=== PATIENT | female | born 1950 ===

== ENCOUNTER 2016-10-22 10:06 | Emergency (ER) | payer OTHER ==
[2016-10-22 10:13] VITALS: RESP 17
[2016-10-22 11:05] VITALS: O2SAT 98
[2016-10-22] MEDS ORDERED: Albuterol-Ipratrop 3 mg / 0.5 (3 ml) UD IH STA (11:08)
[2016-10-22] MEDS ORDERED: guaiFENesin 100 mg/5 ml Syrup UD PO STA (11:08)
[2016-10-22] MEDS ORDERED: guaiFENesin 100 mg/5 ml Syrup UD ONE (11:19)
--- NOTE | 2016-10-22 11:19 | C.PDOC ---
History Of Present Illness 66 y/o female pmhx COPD, lung cancer diagnosed in 2010 (small nodules, seen and evaluated by teenage program director in [place], told was stable and advised against chemotherapy or radiation) presents to ED with complaints of productive cough x1 week. Pt states occasionally the phlegm causes her to vomit. She denies SOB, dyspnea, chest pain, fever, chills, leg pain or edema, abdominal pain or any other complaints. (Valeriano HUTCHISON,Dejah Jose) History Per: Patient History/Exam Limitations: no limitations Onset/Duration Of Symptoms: Days Current Symptoms Are (Timing): Still Present Severity: Moderate Associated Symptoms: denies: Fever, Chills, Chest Pain Alleviating Factors: None Recent travel outside of the [place]: No Time Seen by Provider: 10/22/16 10:24 Chief Complaint (Nursing): Abdominal Pain Past Medical History Reviewed: Historical Data, Nursing Documentation, Vital Signs - Medical History PMH: COPD, Emphysema, Hyperthyroidism, Hypothyroidism Family History: States: Unknown Family Hx - Social History Hx Alcohol Use: No Hx Substance Use: No - Immunization History Hx Influenza Vaccination: No Hx Pneumococcal Vaccination: No Review Of Systems Except As Marked, All Systems Reviewed And Found Negative. Constitutional: Negative for: Fever, Chills Cardiovascular: Negative for: Chest Pain Respiratory: Positive for: Cough, Sputum. Negative for: Shortness of Breath Gastrointestinal: Positive for: Vomiting. Negative for: Nausea, Abdominal Pain Physical Exam - Physical Exam Appears: Well, Non-toxic, No Acute Distress, Other (speaking in full sentences, breathing easy and unlabored, pt ambulatory in the ER) Skin: Warm, Dry, No Rash Head: Atraumatic, Normacephalic Eye(s): bilateral: Normal Inspection, PERRL, EOMI Ear(s): Bilateral: Normal Oral Mucosa: Moist Throat: Normal, No Erythema, No Exudate Neck: Normal, Normal ROM, Supple Chest: Symmetrical Cardiovascular: Rhythm Regular, No Murmur Respiratory: Normal Breath Sounds, No Accessory Muscle Use, No Rales, No Rhonchi , No Wheezing, Other (breathing easy and unlabored) Gastrointestinal/Abdominal: Normal Exam, Soft, No Tenderness Extremity: Normal ROM, No Tenderness, No Pedal Edema, No Calf Tenderness, Capillary Refill, No Deformity, No Swelling Extremity: Bilateral: Atraumatic Neurological/Psych: Oriented x3, Normal Speech, Normal Cognition ED Course And Treatment O2 Sat by Pulse Oximetry: 98 (room air) Pulse Ox Interpretation: Normal Medical Decision Making Medical Decision Makin66 y/o female pmhx COPD, lung cancer diagnosed in 2010 (small nodules, seen and evaluated by teenage program director in [place], told was stable and advised against chemotherapy or radiation) presents to ED with complaints of productive cough x1 week. Differential diagnosis : to r/o pneumonia, likely bronchitis, consider flu. Plan: CXR, phanbkanwalitussin CXR: NAD, as read by PA. On re-evaluation, pt is resting comfortably in bed in no acute distress. Breathing easy and unlabored. Speaking in full sentences with no cough. On exam , lungs area clear with no wheezing, rales or rhonchi. VSS. Pt advised to f/u with referral physician provided in 2 days without fail for further evaluation. Take medication as prescribed. Return to the ER at any time for any new or worsening symptoms. (Valeriano HUTCHISON,Dejah Jose) Disposition - Disposition Disposition Time: 12:00 - Disposition Referrals: Shanice Griggs MD [Staff Provider] - Disposition: HOME/ ROUTINE Condition: IMPROVED Additional Instructions: Follow up with the referral physician provided in 2 days without fail for further evaluation. Take medication as prescribed. Return to the ER at any time for any new or worsening symptoms. Prescriptions: Albuterol 0.083% [Albuterol Sulfate 3 Ml] 3 ml IH Q4 #100 neb Azithromycin [Z-[place]] 250 mg PO DAILY #6 tab Guaifenesin 400 mg PO QID #20 tablet Montelukast [Singulair] 5 mg PO DAILY #30 ctb Instructions: Acute Bronchitis (ED) Print Language: DANISH - Clinical Impression Clinical Impression: Bronchitis - PA / [employer] / Resident Statement / has reviewed & agrees with the documentation as recorded. - Scribe Statement The provider has reviewed the documentation as recorded by the Scribe - Scribe Statement Beni Rodriguez All medical record entries made by the Scribe were at my direction and personally dictated by me. I have reviewed the chart and agree that the record accurately reflects my personal performance of the history, physical exam, medical decision making, and the department course for this patient. I have also personally directed, reviewed, and agree with the discharge instructions and disposition. (Valeriano HUTCHISON,Dejah Jose)
[2016-10-22] MEDS ORDERED: Albuterol-Ipratrop 3 mg / 0.5 (3 ml) UD ONE (11:20)
--- NOTE | 2016-10-22 12:10 | RAD ---
HISTORY: cough COMPARISON: Chest x-ray performed 03/02/12 TECHNIQUE: Chest PA and lateral FINDINGS: LUNGS: Hyperinflation may be seen in the setting of COPD. Suspected right apical calcified granulomas. Prominent interstitial markings may be chronic. No focal consolidation. Please note that chest x-ray has limited sensitivity for the detection of pulmonary masses. PLEURA: No significant pleural effusion identified. No definite pneumothorax . CARDIOVASCULAR: Heart size appears within normal limits. Atherosclerotic calcifications of the aorta. OSSEOUS STRUCTURES: Degenerative changes. VISUALIZED UPPER ABDOMEN: Unremarkable. OTHER FINDINGS: None. IMPRESSION: Chronic appearing prominent interstitial markings. Suspected right apical calcified granulomas. Hyperinflation may be seen in the setting of COPD.
[2016-10-22 12:25] VITALS: BP 108/65; PULSE 63; TEMP 98.6
== END 2016-10-22 12:43 | disposition home or self-care (01) ==
LOC: C.ER 10:06
DX: J40 Bronchitis, not specified as acute or chronic (principal)